=== PATIENT | female | born 1995 | race Caucasian/White ===

== ENCOUNTER 2017-01-05 18:30 | Inpatient (IN) | payer BC, MEDICAID ==
[~2017-01-05] VITALS: Ht 152.4 cm; Wt 94.3 kg
--- NOTE | 2017-01-07 13:06 | OR ---
ADMIT: 01/05/2017 RM/LOC: 228 [facility] [place] MR#: [id number] [address] [facility] [address] [place], [place] [address] WILFRED JAIME V [address] [place] [address] Operative/Delivery Room Report SEX: F AGE: 21 : 1995 Corrected: 01/07/2017 0557 nj SURGERY DATE: 01/06/2017 SURGEON: Alpa Knapp MD PROCEDURE: Primary low transverse section. INTERNET APPLICATION DEVELOPER: Wendy Hewitt MD, Resident. PREOPERATIVE DIAGNOSES: 1. A 21-year-old, G1, P0, female with intrauterine at 38 weeks 1 day via 7-week ultrasound. 2. Intrauterine growth restriction. 3. Significant maternal weight loss. 4. Maternal anemia. 5. Recurrent decelerations and intolerance to induction of labor. POSTOPERATIVE DIAGNOSES: 1. A 21-year-old, G1, P1-0-0-1, status post primary low transverse section at 38 weeks 1 day estimated gestational age. 2. Intrauterine growth restriction. 3. Significant maternal weight loss. 4. Anemia. 5. intolerance of labor induction with recurrent decelerations. 6. Primary low transverse section. INDICATION: The patient is a 21-year-old, G1, P0, at 38 weeks 0 days at the time of presentation, who presented for induction of labor secondary to intrauterine growth restriction. Cytotec cervical ripening was performed. intolerance to induction was noted with recurrent decelerations. The decision was made to proceed with primary low transverse section. ANESTHESIA: Spinal. COMPLICATIONS: None, the patient tolerated the procedure well. ESTIMATED BLOOD LOSS: 500 mL. IV FLUIDS: 1100 mL of LR. URINE OUTPUT: 150 mL clear urine. FINDINGS: 1. A male in the occiput posterior presentation with information below. 2. No meconium noted. 3. Resuscitation Team was present at delivery. 4. Apgars 9 and 9 with a weight of 5 pounds 2 ounces. ADMIT: 01/05/2017 RM/LOC: 228 [facility] [place] MR#: [id number] [address] [facility] [address] [place] [phone] WILFRED JAIME V [address] [place] [address] Operative/Delivery Room Report SEX: F AGE: 21 : 1995 5. Normal tubes, ovaries, and uterus. DELIVERY INFORMATION: For baby boy, Bogdan Loya. Delivery date 01/06/2017. sex male. Delivery type, repeat low transverse section. PROCEDURE IN DETAIL: The patient was taken to the operating room and spinal anesthesia was given. She was placed in dorsal supine position with a leftward tilt. SCDs and Childers catheter replaced and she was prepped and draped in a normal sterile fashion. A time-out was performed. Anesthesia was found to be adequate. Antibiotics were given prior to skin incision. A Pfannenstiel skin incision was then made 2 cm above the pubic bone. Incision was made at the scalpel and carried through the underlying layer of fascia with the scalpel. The fascia was nicked in the midline. The incision was extended laterally with Curry scissors. Superior aspect of the fascial incision was then grasped with Juan F clamps, elevated, and the underlying rectus muscles were dissected off bluntly. Attention was then turned to the inferior aspect of this incision, which in a similar fashion was dissected. The rectus muscles were then in the midline and the peritoneum was identified. The peritoneum was entered bluntly. The peritoneum was then stretched to give good visualization of the bladder. A bladder blade was then inserted and the vesicouterine peritoneum identified. A bladder flap was made. The peritoneum was grasped and entered sharply with Metzenbaum scissors. The incision was then extended laterally and a bladder flap was created digitally. The lower uterine segment was then incised in a transverse fashion with the scalpel. The uterine incision was then extended craniocaudally. The bladder blade was removed. Infant's head was brought to the hysterotomy and was delivered atraumatically with the body following one nuchal cord was present. The was vigorous and crying. After delayed cord clamping, the cord was clamped and cut. The infant was handed to the awaiting Resuscitation Team. Cord blood was collected. Cord gas was not collected. The placenta was then removed and fundal massage was performed. The uterus was exteriorized and cleared of all clots and debris. The placenta was sent to pathology. Uterine incision was repaired with 0 Vicryl suture in a running locked fashion. One additional [id number] stitch was placed with 0 Vicryl suture to provide hemostasis. No imbricating layer was performed. There was hemostasis. The posterior cul-de- sac was then visualized and cleared of clots and debris. The uterus was replaced in the left and right pericolic gutters visualized and cleared of ADMIT: 01/05/2017 RM/LOC: 228 [facility] [place] MR#: [id number] [address] [place] [id number] WILFRED JAIME V [address] [facility] [address] [place] [address] Operative/Delivery Room Report SEX: F AGE: 21 : 1995 clots and debris. The uterine incision was then again visualized and noted to remain hemostatic. The peritoneum was approximated, but not closed. The fascia was then closed with 0 Polysorb in a running fashion. The subcutaneous tissue was then closed with 2-0 Vicryl in a running fashion. The skin was closed with 4-0 Vicryl. A sterile dressing was applied. All tissues were hemostatic and counts were correct x2. The patient tolerated the procedure well. The patient was taken to the recovery room in stable condition. There were no known complications. Dr. Alpa Knapp was present and scrubbed for the entire procedure. Wendy Hewitt MD Resident / Alpa Knapp MD / ryan JOB #: [id number] CC: Alpa Knapp, Attending Physician Alpa Knapp, Family Physician Corrected: 01/07/2017 0557 njv
[2017-01-09] MEDS ORDERED: FEOSOL-DPS325 MG PO (14:17)
[2017-01-09] MEDS ORDERED: PERCOCET 5 DPS1 TAB PO (14:17)
[2017-01-09] MEDS ORDERED: MOTRIN-DPS800 MG PO (14:17)
[2017-01-09] MEDS ORDERED: COLACE-DPS100 MG PO (14:17)
[2017-01-09] MEDS ORDERED: NIPPLECREAM TP (14:18)
--- NOTE | 2017-01-24 09:13 | HP ---
ADMIT: 01/05/2017 RM/LOC: 228 [facility] MR#: [id number] [address] [facility] [address] [place], [place] [address] SUE WILFRED DUNBAR V [address] [place] [address] History and Physical SEX: F AGE: 21 : 1995 DATE OF SERVICE: CHIEF COMPLAINT: Induction of labor. HISTORY OF PRESENT ILLNESS: This is a 21-year-old, G1, P0, with intrauterine at 38 weeks 0 days via 7-week ultrasound, who [facility] for induction of labor secondary to IUGR. Her has been complicated by late transfer of care in the 3rd trimester; chronic headaches; weight loss in , it appears she is currently down 2 pounds from her pre- weight gain; and anemia. The patient denies contractions, leaking of fluid, or vaginal bleeding at time of presentation. She reports normal movement. PAST MEDICAL HISTORY: Obesity, anemia, allergic rhinitis. No history of hypertension or asthma. MEDICATIONS: 1. vitamin. 2. Flonase. ALLERGIES: NO KNOWN MEDICAL ALLERGIES. PAST SURGICAL HISTORY: No surgical history. SOCIAL HISTORY: Father of baby is involved. No tobacco use, alcohol use, recreational substance use during this . FAMILY HISTORY: She denies any family history of diabetes, hypertension, asthma, or congenital anomalies. REVIEW OF SYSTEMS: The patient denies headache, changes of vision, chest pain, shortness of breath. No nausea, vomiting, diarrhea, or constipation. PHYSICAL EXAMINATION: VITAL SIGNS: Blood pressure is 135/80, pulse 76, respiratory rate 16, she is afebrile, saturating 97% on room air. GENERAL: She is alert and oriented. She is pleasant, in no acute distress. HEART: Regular rate and rhythm. LUNGS: Clear to auscultation bilaterally. ABDOMEN: Gravid. Nontender. Estimated weight is 2600 g. Head appears vertex via Ej's. EXTREMITIES: She has no edema in bilateral lower extremities. Distal pulses 2+. Sterile vaginal exam, 150, -2 per nursing staff. heart tones baseline 140, moderate variability, accelerations, no decelerations. No contractions noted on tocometer at time of presentation. LABS: Blood type A positive, direct antibody testing negative, GBS negative. Hemoglobin 10.6, platelets 332, as of October 2016. Rubella immune. ADMIT: 01/05/2017 RM/LOC: 228 [facility] MR#: [id number] [address] [facility] [address] [place] [phone] WILFRED JAIME V [address] [place] [address] History and Physical SEX: F AGE: 21 : 1995 HIV, hepatitis B, RPR, Gonorrhea and Chlamydia, all negative. Unable to find the result for glucose tolerance test; however, this was negative per patient. ASSESSMENT AND PLAN: This is a 21-year-old, 1, para 0, here for induction of labor secondary to intrauterine growth restriction at 38 weeks 0 days. 1. Admit to the Birthing Center for induction of labor. Mariee score is 6. Plan for Cytotec for cervical ripening. Plan to place 25 mcg Cytotec vaginally and reassess cervix in 4 hours. We will monitor for signs and symptoms of tachysystole. Plan for Pitocin induction followed Cytotec ripening. Consents were obtained for vaginal delivery, assistive vaginal delivery, or section. The patient also consents to a blood transfusion if needed. Her blood type is A positive. No RhoGAM is indicated. 2. Group B Streptococcus negative. No antibiotic prophylaxis at this time. We will monitor for signs and symptoms of infection. 3. Anemia- on iron supplementation. 4. heart tones are reassuring, category I. Continue to monitor through labor. 5. Maternal well-being. She denies pain at this time. We will reassess throughout the labor process. 6. Immunizations up-to-date and documented. The patient was seen and discussed with staff physician, Dr. Alpa Knapp. Wendy Hewitt MD Resident / Alpa Knapp MD / ryan JOB #: [id number] CC: Alpa Knapp, Attending Physician Alpa Knapp, Family Physician
--- NOTE | 2017-01-24 09:20 | DS ---
ADMIT: 01/05/2017 RM/LOC: 228 [facility] MR#: [id number] [address] [facility] [address] [place], [place] [address] WILFRED JAIME V [address] [place] [address] Discharge Summary SEX: F AGE: 21 : 1995 ADMISSION DATE: 01/05/2017 DISCHARGE DATE: 01/08/2017 FINAL DIAGNOSES: 1. A 21-year-old, -0-0-1, status post primary low transverse section at 38 weeks 1 day. 2. Indication for section was non-reassuring heart tones. 3. Intrauterine growth restriction with small for gestational age infant. 4. Anemia. REASON FOR ADMISSION AND HOSPITAL COURSE: This is a 21-year-old, G1, P0 with intrauterine at 38 weeks 0 days at time of admission, who was admitted for induction of labor secondary to IUGR. The patient was admitted and Cytotec was placed for cervical ripening. After administration of Cytotec, the patient did begin having variable as well as late decelerations. With recurrent decelerations with heart tones in the 80s and 90s persistently, the decision was made to proceed with primary low transverse section. The patient's had been complicated by IUGR as well as a late transfer of care from [place], as well as anemia. The patient ultimately underwent a primary low transverse section and had a male infant with a weight of 5 pounds 2 ounces and scores of 9 and 9. The baby stayed at the maternal bedside following delivery, and the baby's hospital course was uncomplicated. The patient's hospital course was complicated by anemia, which she was continued on home iron supplementation for. Her course was otherwise uncomplicated. She is breast feeding, and she is meeting discharge criteria. Desires to be discharged to home today, postoperative day #2, primary low transverse section. She plans on an IUD for contraception. DELIVERY INFORMATION: Delivery date was 01/06/2017 at 0343. Infant sex was male. Weight was 5 pounds 2 ounces. scores 9 and 9, small for a gestational age . LABORATORY DATA: All labs final at the time of discharge. DISCHARGE MEDICATION: 1. The patient was discharged to home on Motrin 800 mg q.8 hours p.r.n. 2. Percocet 5/325 mg 1-2 tablets q.4 hours p.r.n. 3. Colace. 4. vitamin. 5. Ferrous sulfate. PATIENT INSTRUCTIONS: The patient was instructed to have pelvic rest for 6 ADMIT: 01/05/2017 RM/LOC: 228 [facility] MR#: [id number] [address] [address] WILFRED JAIME V [address] [facility] [address] [place] [address] Discharge Summary SEX: F AGE: 21 : 1995 weeks. Recommended no driving while on narcotic medications. Recommend lifting restriction of 20 pounds for 6 weeks. She should notify her physician with a temperature greater than 100.4, if she is having brisk vaginal bleeding that soaks through more than 1 pad per hour, if any area of her breasts becomes red or painful, or if her pain is no longer controlled by oral pain medications. Recommend a general diet as tolerated and increased fluid intake. Discussed symptoms of blues and depression. She should contact us immediately should this become a concern. FOLLOWUP: Recommended follow up with Dr. Alpa Knapp in 2 weeks for a wound check and in 6 weeks for visit. The patient was seen and discussed with Dr. Alpa Knapp on day of discharge. Wendy Hewitt MD Resident / Alpa Knapp MD / ajf JOB #: [id number] CC: Alpa Knapp MD, Attending Physician Alpa Knapp MD, Family Physician
== END 2017-01-08 11:52 | disposition home or self-care (01) | DRG 765 ==
LOC: 2LDRP 18:30 → BC 18:30 → 2LDRP 18:52 → BC 01-19 08:00
DX: O36.5930 Maternal care for other known or suspected poor fetal growth, third trimester, not applicable or unspecified (principal); Z68.41 Body mass index [BMI] 40.0-44.9, adult; O64.0XX0 Obstructed labor due to incomplete rotation of fetal head, not applicable or unspecified; O99.02 Anemia complicating childbirth; D64.9 Anemia, unspecified; O76 Abnormality in fetal heart rate and rhythm complicating labor and delivery; O75.89 Other specified complications of labor and delivery; R63.4 Abnormal weight loss; O99.214 Obesity complicating childbirth; E66.9 Obesity, unspecified; O99.52 Diseases of the respiratory system complicating childbirth; J30.9 Allergic rhinitis, unspecified; Z3A.38 38 weeks gestation of pregnancy; Z37.0 Single live birth